=== PATIENT | female | born 1945 | race Caucasian/White ===

== ENCOUNTER 2018-07-30 20:14 | Emergency (ER) | payer OTHER ==
[~2018-07-30] VITALS: Ht 167.6 cm; Wt 108.9 kg
[~2018-07-30 20:14] MED LIST: ADULT ONE DAI200 MCG PO; ALBIPROI INH; AMIO200 PO; ASPI325 PO; ATOR20 PO; Amiodarone HCl200 MG PO; CETI10; CHOL10002; CHOL10002 PO; CIPR500 PO; CITA20 PO; COMBIVENT RESPIM4 GM INH; Calcitriol0.25 MCG PO; Coumadin1 MG PO; Coumadin2 MG PO; DIAZ5 PO; DOCU100 PO; ENOX120I SC; ESTR1; FIBER SELECT G1 EACH PO; FLUSAL2505 IH; FLUSAL2505 INH; FURO20; FURO20 PO; HYDR25SUP PR; IRON150C PO; Jantoven2 MG; Kristalose20 GM PO; LEVSOD100 PO; LEVSOD88 PO; Levaquin750 MG PO; METO100ER PO; METO50ER PO; MULTI-VITAMIN1 EAC1 PO; Motion Sickness25 M4 PO; NAPR500 PO; Norco 5-325 Ta1 EACH PO; OMEP20ER PO; OXYACE5T PO; POTCHL10ER; POTCHL10ER PO; Prednisone20 MG PO; Prilosec Otc20 MG PO; SOTO80; Synthroid88 MCG PO; TRAM50 PO; TRAZ100 PO; TRAZ50 PO; TYLENOL ARTHRITIS PO; WARF1 PO; WARF2; WARF2.5; WARF2.5 PO
[2018-07-30 21:18] LABS: BASOPHILS ABSOLUTE AUTO 0.03 K/mm3 (0.00-0.23); BASOPHILS PERCENT AUTO 0 % (0-2); EOSINOPHILS ABSOLUTE AUTO 0.08 K/mm3 (0.00-0.68); EOSINOPHILS PERCENT AUTO 1 % (0-6); Hematocrit 38.4 % (33.0-51.0); Hemoglobin 12.4 g/dL (11.5-16.0); IMMATURE GRAN ABSOLUTE AUTO 0.02 K/mm3 (0.00-0.10); IMMATURE GRAN PERCENT AUTO 0 % (0-1); LYMPHOCYTES ABSOLUTE AUTO 0.97 K/mm3 (0.84-5.20); LYMPHOCYTES PERCENT AUTO 12 % (21-46); MONOCYTES ABSOLUTE AUTO 0.67 K/mm3 (0.16-1.47); MONOCYTES PERCENT AUTO 8 % (4-13); Mean Corpuscular HGB Conc 32.3 g/dL (31.5-36.5); Mean Corpuscular Volume 93 fL (80-100); Mean Platelet Volume 11.3 fL (9.1-12.4); NEUTROPHILS ABSOLUTE AUTO 6.35 K/mm3 (1.96-9.15); NEUTROPHILS PERCENT AUTO 78 % (41-73); Platelet Count 220 K/mm3 (150-400); RDW Coefficient Variation 14.2 % (11.7-14.2); RDW Standard Deviation 47.9 fL (35.1-46.3); Red Blood Cell Count 4.13 M/mm3 (3.80-5.20); White Blood Cell Count 8.12 K/mm3 (4.00-11.30)
[2018-07-30 21:30] LABS: International Normalized Ratio 1.43; Prothrombin Time Results 14.4 Sec (9.7-11.5)
[2018-07-30 21:36] LABS: Albumin, Blood 2.8 g/dL (3.4-5.0); Albumin/Globulin Ratio 0.7 (0.8-1.8); Bilirubin, Total 0.3 mg/dL (0.1-1.0); Bun/Creatinine Ratio 13.5 (12.0-20.0); Calcium, Blood 8.4 mg/dL (8.5-10.1); Creatinine, Blood 1.56 mg/dL (0.40-1.00); Globulin, Blood 3.9 g/dL (2.2-4.0); Potassium, Blood 4.2 mmol/L (3.5-5.5); Total Protein, Blood 6.7 g/dL (6.4-8.2)
[2018-07-30 23:00] LABS: Influenza A Negative (NEGATIVE); Influenza B Negative (NEGATIVE)
[2018-07-30 23:15] LABS: Source, Urine Clean Catch
[2018-07-30 23:20] LABS: Appearance, Urine Clear (Clear); Bilirubin, Urine 1+ (Neg); Blood, Urine Neg (Neg); Color, Urine Yellow (P-Yellow); Glucose Qualitative, Urine Neg (Neg); Ketones, Urine Neg (Neg); Leukocyte Esterase, Urine 1+ (Neg); Nitrite, Urine Neg (Neg); Protein, Urine 1+ (Neg); Specific Gravity, Urine 1.015 (1.003-1.022); Urobilinogen, Urine 1+ (Normal)
[2018-07-30 23:29] LABS: Bacteria Few /hpf; Red Blood Cells, Urine Not Seen /hpf (0-2); Squamous Epithelial Cells Mod /hpf (Few); White Blood Cells, Urine 0-2 /hpf (0-5)
== END 2018-07-30 23:53 | disposition home or self-care (01) ==
LOC: ER 20:14
PROVIDERS: Emergency Medicine
DX: B34.9 Viral infection, unspecified (principal); J45.909 Unspecified asthma, uncomplicated; G47.30 Sleep apnea, unspecified; I48.91 Unspecified atrial fibrillation; Z88.5 Allergy status to narcotic agent; Z88.0 Allergy status to penicillin; Z79.01 Long term (current) use of anticoagulants; Z79.899 Other long term (current) drug therapy
CPT/HCPCS: 36415; 80053; 81001; 84484; 85025; 85610; 87086; 87804; 96360; 99283-25; J7030

== ENCOUNTER → 2018-08-01 | Outpatient (CLI) | payer OTHER ==
[2018-08-04 10:40] LABS: Adenovirus F 40/41 Not Detected (NOT DETECT); Astrovirus Not Detected (NOT DETECT); Campylobacter Sp Not Detected (NOT DETECT); Cryptosporidium Not Detected (NOT DETECT); Cyclospora Cayetanensis Not Detected (NOT DETECT); E. Coli O157 Not Detected (NOT DETECT); Entamoeba Histolytica Not Detected (NOT DETECT); Enteroaggregative E. coli-EAEC Not Detected (NOT DETECT); Enteropathogenic E. coli-EPEC Not Detected (NOT DETECT); Enterotoxigenic E. coli-ETEC Not Detected (NOT DETECT); Giardia Lamblia Not Detected (NOT DETECT); Norovirus GI/GII Not Detected (NOT DETECT); Plesiomonas Shigelloides Not Detected (NOT DETECT); Rotavirus A Not Detected (NOT DETECT); Salmonella Sp Not Detected (NOT DETECT); Sapovirus Not Detected (NOT DETECT); Shiga Toxin-prod E. coli-STEC Not Detected (NOT DETECT); Shigella/Enteroin E. coli-EIEC Not Detected (NOT DETECT); Vibrio Cholerae Not Detected (NOT DETECT); Vibrio Sp Not Detected (NOT DETECT); Yersinia Enterocolitica Not Detected (NOT DETECT)
== END ==
LOC: LAB EV 08:57
PROVIDERS: Family Medicine
DX: R19.7 Diarrhea, unspecified (principal)
CPT/HCPCS: 87507

== ENCOUNTER 2019-03-26 10:42 | Emergency (ER) | payer OTHER ==
[~2019-03-26] VITALS: Ht 167.6 cm; Wt 106.6 kg
[2019-03-26 11:08] LABS: BASOPHILS ABSOLUTE AUTO 0.06 K/mm3 (0.00-0.23); BASOPHILS PERCENT AUTO 1 % (0-2); EOSINOPHILS ABSOLUTE AUTO 0.16 K/mm3 (0.00-0.68); EOSINOPHILS PERCENT AUTO 2 % (0-6); Hematocrit 37.4 % (33.0-51.0); IMMATURE GRAN ABSOLUTE AUTO 0.02 K/mm3 (0.00-0.10); IMMATURE GRAN PERCENT AUTO 0 % (0-1); LYMPHOCYTES ABSOLUTE AUTO 2.68 K/mm3 (0.84-5.20); LYMPHOCYTES PERCENT AUTO 33 % (21-46); MONOCYTES ABSOLUTE AUTO 0.92 K/mm3 (0.16-1.47); MONOCYTES PERCENT AUTO 11 % (4-13); Mean Corpuscular HGB 29.9 pg (26.0-34.0); Mean Corpuscular HGB Conc 32.1 g/dL (31.5-36.5); Mean Corpuscular Volume 93 fL (80-100); Mean Platelet Volume 11.4 fL (9.1-12.4); NEUTROPHILS PERCENT AUTO 52 % (41-73); Platelet Count 243 K/mm3 (150-400); RDW Coefficient Variation 13.2 % (11.7-14.2); RDW Standard Deviation 45.2 fL (35.1-46.3); Red Blood Cell Count 4.02 M/mm3 (3.80-5.20); White Blood Cell Count 8.04 K/mm3 (4.00-11.30)
[2019-03-26] MEDS ORDERED: ELIQUIS2.5 MG PO (11:27)
[2019-03-26 11:33] LABS: Alanine Aminotransfer (ALT/SGP 16 U/L (12-78); Albumin, Blood 2.9 g/dL (3.4-5.0); Albumin/Globulin Ratio 0.8 (0.8-1.8); Alk Phos 92 U/L (50-136); Anion Gap 8 mmol/L (6-16); Aspartate Aminotrans (AST/SGOT 13 U/L (12-37); Bilirubin, Total 0.5 mg/dL (0.1-1.0); Blood Urea Nitrogen 18 mg/dL (8-24); Bun/Creatinine Ratio 12.6 (12.0-20.0); CO2, Blood 26 mmol/L (21-32); Calcium, Blood 8.8 mg/dL (8.5-10.1); Chloride, Blood 110 mmol/L (98-108); Creatinine, Blood 1.43 mg/dL (0.40-1.00); Globulin, Blood 3.7 g/dL (2.2-4.0); Glomerular Filtration Rate 38 (60-); Glucose, Blood 86 mg/dL (70-99); Potassium, Blood 3.4 mmol/L (3.5-5.5); Sodium, Blood 144 mmol/L (136-145); Total Protein, Blood 6.6 g/dL (6.4-8.2); Troponin I <0.015 ng/mL (0.000-0.040)
[2019-03-26] MEDS ORDERED: Prednisone20 MG PO (11:51)
== END 2019-03-26 12:05 | disposition home or self-care (01) ==
LOC: ER 10:42
PROVIDERS: Emergency Medicine
DX: J44.1 Chronic obstructive pulmonary disease with (acute) exacerbation (principal); I48.91 Unspecified atrial fibrillation; Z88.1 Allergy status to other antibiotic agents; Z88.5 Allergy status to narcotic agent; Z79.899 Other long term (current) drug therapy; Z79.01 Long term (current) use of anticoagulants
CPT/HCPCS: 36415; 71046; 80053; 84484; 85025; 93005; 93010; 99285-25; J7512

== ENCOUNTER 2019-12-09 23:15 | Emergency (ER) | payer OTHER ==
[~2019-12-09] VITALS: Ht 167.6 cm; Wt 102.1 kg
[~2019-12-09 23:15] MED LIST changes: +ELIQUIS2.5 MG PO; +EUTHYROX50 MCG PO; -LEVSOD100 PO
[2019-12-09] MEDS ORDERED: FLUT1DIS5 (23:35)
[2019-12-09] MEDS ORDERED: TRAZ50 (23:35)
[2019-12-09 23:38] LABS: BASOPHILS ABSOLUTE AUTO 0.06 K/mm3 (0.00-0.23); BASOPHILS PERCENT AUTO 1 % (0-2); EOSINOPHILS ABSOLUTE AUTO 0.12 K/mm3 (0.00-0.68); EOSINOPHILS PERCENT AUTO 1 % (0-6); Hemoglobin 11.3 g/dL (11.5-16.0); IMMATURE GRAN ABSOLUTE AUTO 0.03 K/mm3 (0.00-0.10); IMMATURE GRAN PERCENT AUTO 0 % (0-1); LYMPHOCYTES ABSOLUTE AUTO 2.66 K/mm3 (0.84-5.20); LYMPHOCYTES PERCENT AUTO 22 % (21-46); MONOCYTES PERCENT AUTO 10 % (4-13); Mean Corpuscular HGB 29.1 pg (26.0-34.0); Mean Corpuscular HGB Conc 31.4 g/dL (31.5-36.5); Mean Corpuscular Volume 93 fL (80-100); Mean Platelet Volume 11.8 fL (9.1-12.4); NEUTROPHILS ABSOLUTE AUTO 7.79 K/mm3 (1.96-9.15); NEUTROPHILS PERCENT AUTO 66 % (41-73); Platelet Count 250 K/mm3 (150-400); RDW Coefficient Variation 13.1 % (11.7-14.2); RDW Standard Deviation 44.6 fL (35.1-46.3); Red Blood Cell Count 3.88 M/mm3 (3.80-5.20); White Blood Cell Count 11.86 K/mm3 (4.00-11.30)
[2019-12-09 23:50] LABS: Albumin, Blood 2.8 g/dL (3.4-5.0); Albumin/Globulin Ratio 0.7 (0.8-1.8); Bilirubin, Total 0.4 mg/dL (0.1-1.0); Bun/Creatinine Ratio 16.7 (12.0-20.0); Calcium, Blood 8.5 mg/dL (8.5-10.1); Creatinine, Blood 1.32 mg/dL (0.40-1.00); Potassium, Blood 3.6 mmol/L (3.5-5.5); Total Protein, Blood 6.8 g/dL (6.4-8.2)
[2019-12-09 23:58] LABS: Source, Urine Clean Catch
[2019-12-10 00:06] LABS: Appearance, Urine Clear (Clear); Bilirubin, Urine Neg (Neg); Blood, Urine Neg (Neg); Color, Urine Yellow (P-Yellow); Glucose Qualitative, Urine Neg (Neg); Ketones, Urine Neg (Neg); Leukocyte Esterase, Urine 3+ (Neg); Nitrite, Urine Neg (Neg); Protein, Urine Neg (Neg); Specific Gravity, Urine 1.015 (1.003-1.022); Urobilinogen, Urine 1+ (Normal)
[2019-12-10 00:09] LABS: Bacteria Many /hpf; Mucus Light (0-Heavy); Squamous Epithelial Cells Few /hpf (Few)
[2019-12-10] MEDS ORDERED: CEFP200 PO (00:41)
== END 2019-12-10 00:54 | disposition home or self-care (01) ==
LOC: ER 23:15
PROVIDERS: Emergency Medicine
DX: N39.0 Urinary tract infection, site not specified (principal); I48.91 Unspecified atrial fibrillation; J45.909 Unspecified asthma, uncomplicated; G47.30 Sleep apnea, unspecified; Z88.1 Allergy status to other antibiotic agents; Z88.5 Allergy status to narcotic agent; Z79.899 Other long term (current) drug therapy; Z79.01 Long term (current) use of anticoagulants; Z99.89 Dependence on other enabling machines and devices
CPT/HCPCS: 80053; 81001; 85025; 87086; 93005; 93010; 96365; 99284-25; J0696

== ENCOUNTER → 2020-04-15 | Outpatient (CLI) | payer OTHER ==
[~2020-04-15] MED LIST changes: +CEFP200 PO; +FLUT1DIS5; +TRAZ50
== END ==
LOC: LAB SHORT 12:33 → LAB EV 12:33
DX: J44.1 Chronic obstructive pulmonary disease with (acute) exacerbation (principal); Z20.828 Contact with and (suspected) exposure to other viral communicable diseases
CPT/HCPCS: U0003

== ENCOUNTER → 2020-05-04 | Outpatient (CLI) | payer OTHER | END | disposition home or self-care (01) | LOC: LAB EV 14:30 → LAB SHORT 14:30 | DX: J44.9 Chronic obstructive pulmonary disease, unspecified (principal) | CPT/HCPCS: 87070; 87205 ==

== ENCOUNTER → 2021-05-24 | Outpatient (CLI) | payer OTHER ==
[~2021-05-24] MED LIST changes: +ALBU90OI INH; +BENADRYL25 MG PO; +CALC.25; +Pepcid20 MG PO
[2021-05-24 17:55] LABS: BASOPHILS ABSOLUTE AUTO 0.07 K/mm3 (0.00-0.23); BASOPHILS PERCENT AUTO 1 % (0-2); EOSINOPHILS PERCENT AUTO 2 % (0-6); Hematocrit 36.1 % (33.0-51.0); Hemoglobin 11.7 g/dL (11.5-16.0); IMMATURE GRAN ABSOLUTE AUTO 0.03 K/mm3 (0.00-0.10); IMMATURE GRAN PERCENT AUTO 0 % (0-1); LYMPHOCYTES PERCENT AUTO 28 % (21-46); MONOCYTES ABSOLUTE AUTO 0.78 K/mm3 (0.16-1.47); MONOCYTES PERCENT AUTO 10 % (4-13); Mean Corpuscular HGB 29.7 pg (26.0-34.0); Mean Corpuscular HGB Conc 32.4 g/dL (31.5-36.5); Mean Corpuscular Volume 92 fL (80-100); Mean Platelet Volume 11.2 fL (9.1-12.4); NEUTROPHILS ABSOLUTE AUTO 4.86 K/mm3 (1.96-9.15); NEUTROPHILS PERCENT AUTO 59 % (41-73); Platelet Count 311 K/mm3 (150-400); RDW Coefficient Variation 13.5 % (11.7-14.2); RDW Standard Deviation 45.6 fL (35.1-46.3); Red Blood Cell Count 3.94 M/mm3 (3.80-5.20); White Blood Cell Count 8.24 K/mm3 (4.00-11.30)
[2021-05-24 17:59] LABS: Bun/Creatinine Ratio 13.1 (12.0-20.0); Calcium, Blood 8.8 mg/dL (8.5-10.1); Creatinine, Blood 1.6 mg/dL (0.40-1.00); Potassium, Blood 3.9 mmol/L (3.5-5.5)
[2021-05-24 18:14] LABS: Thyroid Stimulating Hormone 2.371 uIU/mL (0.360-4.800)
[2021-05-24 18:15] LABS: Troponin I <0.017 ng/mL (0.000-0.040)
[2021-05-24 19:04] LABS: International Normalized Ratio 1.67
== END ==
LOC: LAB 17:45 → LAB SHORT 17:45
PROVIDERS: Physician Assistant Surgical
DX: R06.00 Dyspnea, unspecified (principal); R53.83 Other fatigue; Z79.01 Long term (current) use of anticoagulants
CPT/HCPCS: 80048; 84443; 84484; 85025; 85379; 85610; 85730

== ENCOUNTER 2021-05-30 18:49 | Emergency (ER) | payer OTHER ==
[~2021-05-30] VITALS: Ht 167.6 cm; Wt 104.3 kg
[~2021-05-30 18:49] MED LIST changes: -ALBU90OI INH; -CALC.25
[2021-05-30] MEDS ORDERED: ALBU90OI INH (19:17)
[2021-05-30] MEDS ORDERED: WARF1 PO (19:18)
[2021-05-30] MEDS ORDERED: CALC.25 (19:20)
[2021-05-30 21:07] LABS: BASOPHILS ABSOLUTE AUTO 0.06 K/mm3 (0.00-0.23); BASOPHILS PERCENT AUTO 1 % (0-2); EOSINOPHILS ABSOLUTE AUTO 0.15 K/mm3 (0.00-0.68); EOSINOPHILS PERCENT AUTO 2 % (0-6); Hematocrit 36.7 % (33.0-51.0); Hemoglobin 11.7 g/dL (11.5-16.0); IMMATURE GRAN ABSOLUTE AUTO 0.01 K/mm3 (0.00-0.10); IMMATURE GRAN PERCENT AUTO 0 % (0-1); LYMPHOCYTES ABSOLUTE AUTO 2.62 K/mm3 (0.84-5.20); LYMPHOCYTES PERCENT AUTO 31 % (21-46); MONOCYTES PERCENT AUTO 8 % (4-13); Mean Corpuscular HGB 29.6 pg (26.0-34.0); Mean Corpuscular HGB Conc 31.9 g/dL (31.5-36.5); Mean Corpuscular Volume 93 fL (80-100); Mean Platelet Volume 12.3 fL (9.1-12.4); NEUTROPHILS ABSOLUTE AUTO 4.87 K/mm3 (1.96-9.15); NEUTROPHILS PERCENT AUTO 58 % (41-73); Platelet Count 291 K/mm3 (150-400); RDW Standard Deviation 47.6 fL (35.1-46.3); Red Blood Cell Count 3.95 M/mm3 (3.80-5.20); White Blood Cell Count 8.41 K/mm3 (4.00-11.30)
[2021-05-30 21:26] LABS: Alanine Aminotransfer (ALT/SGP 15 U/L (12-78); Albumin, Blood 2.5 g/dL (3.4-5.0); Albumin/Globulin Ratio 0.6 (0.8-1.8); Alk Phos 76 U/L (50-136); Anion Gap 5 mmol/L (6-16); Aspartate Aminotrans (AST/SGOT 16 U/L (12-37); Bilirubin, Total 0.4 mg/dL (0.1-1.0); Blood Urea Nitrogen 24 mg/dL (8-24); Bun/Creatinine Ratio 16.2 (12.0-20.0); CO2, Blood 24 mmol/L (21-32); Calcium, Blood 8.9 mg/dL (8.5-10.1); Chloride, Blood 112 mmol/L (98-108); Creatinine, Blood 1.48 mg/dL (0.40-1.00); Globulin, Blood 4.3 g/dL (2.2-4.0); Glomerular Filtration Rate 34 (60-); Glucose, Blood 82 mg/dL (70-99); Sodium, Blood 141 mmol/L (136-145); Total Protein, Blood 6.8 g/dL (6.4-8.2); Troponin I <0.015 ng/mL (0.000-0.040)
[2021-05-30 21:59] LABS: International Normalized Ratio 2.09; Prothrombin Time Results 20.9 Sec (9.7-11.5)
[2021-05-30 22:23] LABS: SARS-Cov-2 (COVID-19) PCR, MMC NEGATIVE (NEGATIVE)
== END 2021-05-30 23:35 | disposition home or self-care (01) ==
LOC: ER 18:49
PROVIDERS: Emergency Medicine
DX: J06.9 Acute upper respiratory infection, unspecified (principal); I48.0 Paroxysmal atrial fibrillation; I50.9 Heart failure, unspecified; J44.9 Chronic obstructive pulmonary disease, unspecified; Z20.822 Contact with and (suspected) exposure to COVID-19
CPT/HCPCS: 71045; 80053; 83880; 84484; 85025; 85610; 92960; 93005; 93010; 99152; 99285-25; J1940; J2704; J7030; U0004

== ENCOUNTER → 2021-08-24 | Outpatient (CLI) | payer OTHER ==
[~2021-08-24] MED LIST changes: +ALBU90OI INH; +CALC.25
[2021-08-24 13:37] LABS: BASOPHILS ABSOLUTE AUTO 0.03 K/mm3 (0.00-0.23); BASOPHILS PERCENT AUTO 0 % (0-2); EOSINOPHILS PERCENT AUTO 0 % (0-6); Hematocrit 36.7 % (33.0-51.0); Hemoglobin 11.8 g/dL (11.5-16.0); IMMATURE GRAN ABSOLUTE AUTO 0.04 K/mm3 (0.00-0.10); IMMATURE GRAN PERCENT AUTO 0 % (0-1); LYMPHOCYTES ABSOLUTE AUTO 0.71 K/mm3 (0.84-5.20); LYMPHOCYTES PERCENT AUTO 7 % (21-46); MONOCYTES ABSOLUTE AUTO 0.17 K/mm3 (0.16-1.47); MONOCYTES PERCENT AUTO 2 % (4-13); Mean Corpuscular HGB 29.6 pg (26.0-34.0); Mean Corpuscular HGB Conc 32.2 g/dL (31.5-36.5); Mean Corpuscular Volume 92 fL (80-100); Mean Platelet Volume 11.8 fL (9.1-12.4); NEUTROPHILS ABSOLUTE AUTO 8.79 K/mm3 (1.96-9.15); NEUTROPHILS PERCENT AUTO 90 % (41-73); Platelet Count 251 K/mm3 (150-400); RDW Coefficient Variation 14.6 % (11.7-14.2); RDW Standard Deviation 49.1 fL (35.1-46.3); Red Blood Cell Count 3.99 M/mm3 (3.80-5.20); White Blood Cell Count 9.74 K/mm3 (4.00-11.30)
[2021-08-24 14:04] LABS: Albumin, Blood 3.2 g/dL (3.4-5.0); Albumin/Globulin Ratio 0.8 (0.8-1.8); Bilirubin, Total 0.3 mg/dL (0.1-1.0); Bun/Creatinine Ratio 15.6 (12.0-20.0); Creatinine, Blood 1.6 mg/dL (0.40-1.00); Globulin, Blood 3.8 g/dL (2.2-4.0); International Normalized Ratio 3.05; Potassium, Blood 4.7 mmol/L (3.5-5.5); Prothrombin Time Results 29.8 Sec (9.7-11.5)
== END | disposition home or self-care (01) ==
LOC: LAB SHORT 13:29
PROVIDERS: Chiropractor
DX: R07.9 Chest pain, unspecified (principal)
CPT/HCPCS: 80053; 83880; 84484; 85025; 85379; 85610

== ENCOUNTER → 2021-09-06 | Outpatient (CLI) | payer OTHER | END | disposition home or self-care (01) | LOC: LAB 15:31 → LAB SHORT 15:31 | DX: J44.9 Chronic obstructive pulmonary disease, unspecified (principal) | CPT/HCPCS: 87070; 87205 ==

== ENCOUNTER 2022-08-20 20:10 | Emergency (ER) | payer OTHER ==
[~2022-08-20] VITALS: Ht 167.6 cm; Wt 111.1 kg
[2022-08-20 21:02] LABS: BASOPHILS ABSOLUTE AUTO 0.02 K/mm3 (0.00-0.23); BASOPHILS PERCENT AUTO 0 % (0-2); EOSINOPHILS ABSOLUTE AUTO 0.01 K/mm3 (0.00-0.68); EOSINOPHILS PERCENT AUTO 0 % (0-6); Hematocrit 37.4 % (33.0-51.0); Hemoglobin 12.3 g/dL (11.5-16.0); IMMATURE GRAN ABSOLUTE AUTO 0.07 K/mm3 (0.00-0.10); IMMATURE GRAN PERCENT AUTO 1 % (0-1); LYMPHOCYTES ABSOLUTE AUTO 1.08 K/mm3 (0.84-5.20); LYMPHOCYTES PERCENT AUTO 9 % (21-46); MONOCYTES ABSOLUTE AUTO 0.38 K/mm3 (0.16-1.47); MONOCYTES PERCENT AUTO 3 % (4-13); Mean Corpuscular HGB 29.9 pg (26.0-34.0); Mean Corpuscular HGB Conc 32.9 g/dL (31.5-36.5); Mean Corpuscular Volume 91 fL (80-100); Mean Platelet Volume 11.7 fL (9.1-12.4); NEUTROPHILS ABSOLUTE AUTO 9.89 K/mm3 (1.96-9.15); NEUTROPHILS PERCENT AUTO 86 % (41-73); Platelet Count 307 K/mm3 (150-400); RDW Coefficient Variation 13.5 % (11.7-14.2); RDW Standard Deviation 45.2 fL (35.1-46.3); Red Blood Cell Count 4.11 M/mm3 (3.80-5.20); White Blood Cell Count 11.45 K/mm3 (4.00-11.30)
[2022-08-20 21:23] LABS: Albumin, Blood 2.8 g/dL (3.4-5.0); Albumin/Globulin Ratio 0.6 (0.8-1.8); Bilirubin, Total 0.3 mg/dL (0.1-1.0); Bun/Creatinine Ratio 17.1 (12.0-20.0); Calcium, Blood 9.1 mg/dL (8.5-10.1); Creatinine, Blood 1.52 mg/dL (0.40-1.00); Potassium, Blood 4.4 mmol/L (3.5-5.5); Total Protein, Blood 7.8 g/dL (6.4-8.2)
== END 2022-08-21 01:34 | disposition home or self-care (01) ==
LOC: ER 20:10
PROVIDERS: Emergency Medicine
DX: R07.89 Other chest pain (principal); R05.9 Cough, unspecified; J44.9 Chronic obstructive pulmonary disease, unspecified; Z88.1 Allergy status to other antibiotic agents; Z88.5 Allergy status to narcotic agent; Z79.890 Hormone replacement therapy; Z79.899 Other long term (current) drug therapy; Z79.01 Long term (current) use of anticoagulants
CPT/HCPCS: 36415; 71045; 80053; 84484; 85025; 93005; 93010; 99285-25

== ENCOUNTER 2022-10-28 16:24 | Emergency (ER) | payer OTHER ==
[~2022-10-28] VITALS: Ht 170.2 cm; Wt 110.7 kg
[2022-10-28] MEDS ORDERED: AMOCLA875 PO (18:46)
== END 2022-10-28 18:57 | disposition home or self-care (01) ==
LOC: ER 16:24
DX: S61.432A Puncture wound without foreign body of left hand, initial encounter (principal); W18.30XA Fall on same level, unspecified, initial encounter; I48.91 Unspecified atrial fibrillation; J44.9 Chronic obstructive pulmonary disease, unspecified; Z23 Encounter for immunization; Z88.1 Allergy status to other antibiotic agents; Z88.5 Allergy status to narcotic agent; Z79.899 Other long term (current) drug therapy; Z79.01 Long term (current) use of anticoagulants
CPT/HCPCS: 73130; 90714; A9270

== ENCOUNTER 2023-02-15 07:14 | Day surgery (SDC) | payer OTHER ==
[~2023-02-15 07:14] MED LIST changes: +AMOCLA875 PO; +Prednisone50 MG PO
== END 2023-02-15 22:45 | disposition home or self-care (01) ==
LOC: CT 07:14
DX: I25.119 Atherosclerotic heart disease of native coronary artery with unspecified angina pectoris (principal); I25.84 Coronary atherosclerosis due to calcified coronary lesion
CPT/HCPCS: 75571

== ENCOUNTER → 2024-01-02 | Outpatient (CLI) | payer OTHER | END | disposition home or self-care (01) | LOC: LAB SHORT 09:00 → LAB 09:00 | DX: J18.9 Pneumonia, unspecified organism (principal) | CPT/HCPCS: 87070; 87205 ==

== ENCOUNTER 2024-05-19 12:23 | Day surgery (SDC) | payer OTHER ==
[~2024-05-19] VITALS: Ht 167.6 cm; Wt 95.4 kg
[~2024-05-19 12:23] MED LIST changes: +ALMACONE SUSPE355 ML PO; +ARNUITY ELLIPT50 MCG; +COMBIVENT RESPIM4 G1 INH; +Diflucan100 MG PO; +FORMOTEROL20 MCG/2 M INH; +GLYCOPYRROL1 MG/5 M7 INH; +Glycopyrrolate 0.2 MG/ML 1MLVIAL ONE; +LATA.005SO BOTHEYES; +Lactated Ringer's 1,000 ML IV ONE; +Lidocaine 2% 5 ML SDV ONE; +Lidocaine HCl/Pf 1% 5 ML VIAL ONE; +MONT10T PO; +MOTION RELIEF25 MG PO; +Ondansetron HCl 2 MG / ML 2ML Vial ONE; +PANT40 PO; +PULMICORT0.5 MG/21 INH; -TRAZ50; +WARF2 PO; +ePHEDrine Sulfate 50 MG/ML 1ML Injection ONE
[2024-05-19] MEDS ORDERED: IRON GLYCINATE29 MG (13:16)
[2024-05-19] MEDS ORDERED: PANT40 (13:17)
[2024-05-19] MEDS ORDERED: COMBIVENT RESPIM4 G1 (13:17)
[2024-05-19] MEDS ORDERED: JANTOVEN2 MG (13:17)
[2024-05-19] MEDS ORDERED: Isosorbide Mono30 MG (13:18)
[2024-05-19] MEDS ORDERED: NITR.4SL (13:18)
[2024-05-19] MEDS ORDERED: IPRAT-ALBUT 0.5-3 ML (13:19)
[2024-05-19] MEDS ORDERED: Lactated Ringer's 1,000 ML IV ONE (13:46)
[2024-05-19] MEDS ORDERED: propofoL 50 ML IV ONE (14:19)
[2024-05-19] MEDS ORDERED: Midazolam HCL 1 MG/ML 5MLVIAL ONE (14:19)
[2024-05-19] MEDS ORDERED: FentaNYL Citrate 50 MCG/ML 2 ML Injection ONE (14:19)
[2024-05-19 15:11] VITALS: BP 142/83
== END 2024-05-19 15:17 | disposition home or self-care (01) ==
LOC: ORSCSDS 12:23
PROVIDERS: Specialist
PROC: 0D758ZZ Dilation of Esophagus, Via Natural or Artificial Opening Endoscopic (ICD-10-PCS; principal; 2024-05-19 14:15)
PROC: 0DB58ZX Excision of Esophagus, Via Natural or Artificial Opening Endoscopic, Diagnostic (ICD-10-PCS; principal; 2024-05-19 14:15)
PROC: 0DB78ZX Excision of Stomach, Pylorus, Via Natural or Artificial Opening Endoscopic, Diagnostic (ICD-10-PCS; principal; 2024-05-19 14:15)
DX: R13.10 Dysphagia, unspecified (principal); K21.9 Gastro-esophageal reflux disease without esophagitis; R07.89 Other chest pain; K29.70 Gastritis, unspecified, without bleeding; I12.9 Hypertensive chronic kidney disease with stage 1 through stage 4 chronic kidney disease, or unspecified chronic kidney disease; N18.9 Chronic kidney disease, unspecified; E03.9 Hypothyroidism, unspecified; J44.89 Other specified chronic obstructive pulmonary disease; G47.33 Obstructive sleep apnea (adult) (pediatric); Z79.899 Other long term (current) drug therapy; I48.91 Unspecified atrial fibrillation; Z79.01 Long term (current) use of anticoagulants; Z68.33 Body mass index [BMI] 33.0-33.9, adult
CPT/HCPCS: 88305; 88342; C1769; J2003; J2250; J2405; J2704; J3010; J7120

== ENCOUNTER 2024-09-06 06:16 | Emergency (ER) | payer OTHER ==
[~2024-09-06] VITALS: Ht 172.7 cm; Wt 91.6 kg
[~2024-09-06 06:16] MED LIST changes: +COMBIVENT RESPIM4 G1; -Glycopyrrolate 0.2 MG/ML 1MLVIAL ONE; +IPRAT-ALBUT 0.5-3 ML; +IRON GLYCINATE29 MG; +Isosorbide Mono30 MG; +JANTOVEN2 MG; -Lactated Ringer's 1,000 ML IV ONE; -Lidocaine 2% 5 ML SDV ONE; -Lidocaine HCl/Pf 1% 5 ML VIAL ONE; +NITR.4SL; -Ondansetron HCl 2 MG / ML 2ML Vial ONE; +PANT40; -ePHEDrine Sulfate 50 MG/ML 1ML Injection ONE
[2024-09-06] MEDS ORDERED: Atropine/Scopalam/Hyoscam/PB 5 ML UDC PO ONE (06:45)
[2024-09-06] MEDS ORDERED: Ondansetron HCl 2 MG / ML 2ML Vial IV ONE (06:45)
[2024-09-06] MEDS ORDERED: Mag Hydrox/AL Hydrox/Simeth 30 ML UDC PO ONE (06:45)
[2024-09-06 07:28] LABS: BASOPHILS ABSOLUTE AUTO 0.05 K/mm3 (0.00-0.23); BASOPHILS PERCENT AUTO 0 % (0-2); EOSINOPHILS ABSOLUTE AUTO 0.19 K/mm3 (0.00-0.68); EOSINOPHILS PERCENT AUTO 2 % (0-6); Hematocrit 41.1 % (33.0-51.0); Hemoglobin 13.7 g/dL (11.5-16.0); IMMATURE GRAN ABSOLUTE AUTO 0.03 K/mm3 (0.00-0.10); IMMATURE GRAN PERCENT AUTO 0 % (0-1); LYMPHOCYTES ABSOLUTE AUTO 1.36 K/mm3 (0.84-5.20); LYMPHOCYTES PERCENT AUTO 11 % (21-46); MONOCYTES ABSOLUTE AUTO 0.67 K/mm3 (0.16-1.47); MONOCYTES PERCENT AUTO 5 % (4-13); Mean Corpuscular HGB 33.3 pg (26.0-34.0); Mean Corpuscular HGB Conc 33.3 g/dL (31.5-36.5); Mean Corpuscular Volume 100 fL (80-100); Mean Platelet Volume 11.3 fL (9.1-12.4); NEUTROPHILS ABSOLUTE AUTO 10.47 K/mm3 (1.96-9.15); NEUTROPHILS PERCENT AUTO 82 % (41-73); Platelet Count 219 K/mm3 (150-400); RDW Coefficient Variation 14.6 % (11.7-14.2); RDW Standard Deviation 52.5 fL (35.1-46.3); Red Blood Cell Count 4.12 M/mm3 (3.80-5.20); White Blood Cell Count 12.77 K/mm3 (4.00-11.30)
[2024-09-06 07:34] VITALS: BP 149/63
[2024-09-06 07:59] LABS: Albumin/Globulin Ratio 0.7 (0.8-1.8); Bilirubin, Total 0.8 mg/dL (0.1-1.0); Bun/Creatinine Ratio 16.7 (12.0-20.0); Calcium, Blood 9.1 mg/dL (8.5-10.1); Creatinine, Blood 1.44 mg/dL (0.40-1.00); Globulin, Blood 4.4 g/dL (2.2-4.0); Potassium, Blood 3.9 mmol/L (3.5-5.5); Total Protein, Blood 7.4 g/dL (6.4-8.2)
== END 2024-09-06 08:46 | disposition home or self-care (01) ==
LOC: ER 06:16
PROVIDERS: Emergency Medicine
DX: R10.13 Epigastric pain (principal); K21.9 Gastro-esophageal reflux disease without esophagitis; J44.9 Chronic obstructive pulmonary disease, unspecified; I12.9 Hypertensive chronic kidney disease with stage 1 through stage 4 chronic kidney disease, or unspecified chronic kidney disease; N18.9 Chronic kidney disease, unspecified; E78.5 Hyperlipidemia, unspecified; Z88.2 Allergy status to sulfonamides; Z88.1 Allergy status to other antibiotic agents; Z88.5 Allergy status to narcotic agent; Z79.51 Long term (current) use of inhaled steroids; Z79.83 Long term (current) use of bisphosphonates; Z79.899 Other long term (current) drug therapy; Z79.02 Long term (current) use of antithrombotics/antiplatelets; Z79.890 Hormone replacement therapy; Z16.32 Resistance to antifungal drug(s); Z79.01 Long term (current) use of anticoagulants; Z79.1 Long term (current) use of non-steroidal anti-inflammatories (NSAID)
CPT/HCPCS: 80053; 84484; 85025; 93005; 93010; 99283-25; A9270; J2405

== ENCOUNTER 2024-10-09 00:47 | Inpatient (IN) | payer OTHER ==
[~2024-10-09] VITALS: Ht 167.6 cm; Wt 87.5 kg
[2024-10-09 01:08] LABS: BASOPHILS ABSOLUTE AUTO 0.06 K/mm3 (0.00-0.23); BASOPHILS PERCENT AUTO 1 % (0-2); EOSINOPHILS ABSOLUTE AUTO 0.22 K/mm3 (0.00-0.68); EOSINOPHILS PERCENT AUTO 3 % (0-6); Hematocrit 36.7 % (33.0-51.0); Hemoglobin 12.5 g/dL (11.5-16.0); IMMATURE GRAN ABSOLUTE AUTO 0.02 K/mm3 (0.00-0.10); IMMATURE GRAN PERCENT AUTO 0 % (0-1); LYMPHOCYTES ABSOLUTE AUTO 2.37 K/mm3 (0.84-5.20); LYMPHOCYTES PERCENT AUTO 28 % (21-46); MONOCYTES ABSOLUTE AUTO 0.98 K/mm3 (0.16-1.47); MONOCYTES PERCENT AUTO 12 % (4-13); Mean Corpuscular HGB 34.2 pg (26.0-34.0); Mean Corpuscular HGB Conc 34.1 g/dL (31.5-36.5); Mean Corpuscular Volume 101 fL (80-100); Mean Platelet Volume 11.7 fL (9.1-12.4); NEUTROPHILS ABSOLUTE AUTO 4.71 K/mm3 (1.96-9.15); NEUTROPHILS PERCENT AUTO 57 % (41-73); Platelet Count 218 K/mm3 (150-400); RDW Coefficient Variation 16.7 % (11.7-14.2); RDW Standard Deviation 61.5 fL (35.1-46.3); Red Blood Cell Count 3.65 M/mm3 (3.80-5.20); White Blood Cell Count 8.36 K/mm3 (4.00-11.30)
[2024-10-09] MEDS ORDERED: DORZOLAMIDE-TIM10 ML (01:49)
[2024-10-09] MEDS ORDERED: ENOX30I SC (01:50)
[2024-10-09] MEDS ORDERED: VALA500 PO (01:50)
[2024-10-09] MEDS ORDERED: PRED FORTE5 M1 (01:50)
[2024-10-09 01:55] LABS: Albumin, Blood 3.1 g/dL (3.4-5.0); Albumin/Globulin Ratio 0.8 (0.8-1.8); Bilirubin, Total 0.9 mg/dL (0.1-1.0); Bun/Creatinine Ratio 11.4 (12.0-20.0); Calcium, Blood 9.1 mg/dL (8.5-10.1); Creatinine, Blood 1.58 mg/dL (0.40-1.00); Globulin, Blood 3.7 g/dL (2.2-4.0); Potassium, Blood 3.8 mmol/L (3.5-5.5); Total Protein, Blood 6.8 g/dL (6.4-8.2)
[2024-10-09] MEDS ORDERED: Diphth,Pertuss(Acell),Tet Vac 0.5 ML VIAL IM ONE (02:20)
[2024-10-09] MEDS ORDERED: FentaNYL Citrate 50 MCG/ML 2 ML Injection IV PRN (02:20)
[2024-10-09] MEDS ORDERED: Ondansetron 4 MG TAB PO PRN (05:30)
[2024-10-09] MEDS ORDERED: FLU VACC TS2024-25(6MOS UP)/PF 45 MCG/0.5 ML SYRINGE IM ONE ×2 (05:30)
[2024-10-09] MEDS ORDERED: Meclizine HCl 25 MG Tab PO PRN (05:35)
[2024-10-09] MEDS ORDERED: Budesonide 0.5 MG/2 ML RESP INH SCH (05:35)
[2024-10-09] MEDS ORDERED: Nitroglycerin 0.4 MG SUBL SL PRN (05:40)
[2024-10-09] MEDS ORDERED: Dorzolamide/Timolol Opth Soln 10 ML BOTHEYES SCH (06:00)
[2024-10-09] MEDS ORDERED: NS 1,000 ML IV SCH (06:00)
[2024-10-09 06:39] LABS: C-REACTIVE PROTEIN, EXT RANGE 0.949 mg/dL (0.000-0.300)
[2024-10-09 06:48] LABS: Thyroid Stimulating Hormone 9.49 uIU/mL (0.360-4.800)
[2024-10-09] MEDS ORDERED: Albuterol HFA200 ACT/6.7 GM INH INH SCH (07:15)
[2024-10-09] MEDS ORDERED: Ipratropium/Albuterol SulF 2.5-0.5MG/3 ML Amp INH SCH (07:25)
--- NOTE | 2024-10-09 08:15 | NUR ---
PT ADMITTED TO ROOM 343.
[2024-10-09 08:26] VITALS: BP 173/97
[2024-10-09] MEDS ORDERED: Atorvastatin 10 MG Tab PO SCH (09:00)
[2024-10-09] MEDS ORDERED: Citalopram Hydrobromide 10 MG TAB PO SCH (09:00)
[2024-10-09] MEDS ORDERED: ValACYClovir HCL 500 MG Tab PO SCH (09:00)
[2024-10-09] MEDS ORDERED: Warfarin Sodium 2 MG Tab PO SCH (09:00)
[2024-10-09] MEDS ORDERED: Pantoprazole Sodium 20 MG Tab PO SCH (09:00)
[2024-10-09] MEDS ORDERED: Metoprolol Succinate 50 MG TABCR PO SCH (09:00)
[2024-10-09 10:21] LABS: International Normalized Ratio 1.01; Prothrombin Time Results 10.8 Sec (9.7-11.5)
[2024-10-09] MEDS ORDERED: Ciprofloxacin2.5 ML LEFTEYE (11:33)
[2024-10-09] MEDS ORDERED: PREDNISOLONE ACE5 ML LEFTEYE (11:34)
--- NOTE | 2024-10-09 11:50 | NUR ---
Pt. is awake and in good spirits when I visit. Pt. had other visitors present, so this cosmetologist agreed to return later. Will remain available to the Pt.
[2024-10-09 12:11] VITALS: BP 171/84
[2024-10-09 12:17] VITALS: BP 154/92
[2024-10-09] MEDS ORDERED: Albuterol HFA200 ACT/6.7 GM INH INH PRN (13:05)
[2024-10-09] MEDS ORDERED: Ipratropium/Albuterol SulF 2.5-0.5MG/3 ML Amp INH PRN (13:05)
[2024-10-09] MEDS ORDERED: Lactated Ringer's 500 ML IV SCH (13:30)
[2024-10-09] MEDS ORDERED: PrednisoLONE 1% Opth Susp 5 ML LEFTEYE SCH ×2 (13:35→21:00)
[2024-10-09] MEDS ORDERED: CIPROFLOXACIN 0.3% LEFTEYE SCH (13:35)
[2024-10-09] MEDS ORDERED: OPTH LEFTEYE SCH (13:35)
[2024-10-09 16:44] VITALS: BP 152/77
[2024-10-09] MEDS ORDERED: Albuterol 2.5 MG/3 ML VIAL INH SCH (16:45)
[2024-10-09] MEDS ORDERED: Warfarin Sodium 5 MG Tab PO SCH (18:00)
--- NOTE | 2024-10-09 18:08 | NUR ---
Pt. is awakw in bed and welcomes my visit. No vistors are present so I faciltated a life review and listened with empathy and interest. Considered matters of emilio and belief and also considered Pts. discharge expectations. Pt. verbalized that she has a good family support system that would help her at home, Attempted to normalize the Pt. experience. When Pts. son arrived, I prayed with Pt. Both Pt. and son verbalize gratitude for the spiritual care support.
--- NOTE | 2024-10-09 19:17 | NUR ---
SHIFT SUMMARY PT ADMITTED THIS MORNING AFTER EXPERIENCING A GLF AT HOME AND HITTING HER HEAD. PT REPORTS TO BE ON WARFARIN FOR AFIB. PT IS A/OX4. SBA D/T WEAKNESS. ORTHOSTATIC VITAL OBTAINED AND POSITIVE. PT IS ON RA, REPORTS CPAP USE AT NIGHT, THOUGH HAS NOT BEEN USING RECENTLY. ON TELE RUNNING NORMAL SINUS RYTHYM IN THE 60'S. REPORTS RECENT LEFT EYE SURGERY. HEMATOMA TO THE FOREHEAD AREA, SMALL SKIN TEAR TO THE LEFT KNEE, OPEN TO AIR, AND PAIN TO THE LEFT WRIST. SPLINT TO LEFT WRIST FOR COMFORT. MRI COMPLETED THIS AFTERNOON. CONTINUOUS NS RUNNING @ 100 ML/HR. PT CALLS APPROPRIATELY USING THE CALL LIGHT.
[2024-10-09] MEDS ORDERED: Acetaminophen 500 MG Tab PO PRN (19:30)
[2024-10-09 19:35] VITALS: BP 130/75
[2024-10-09 20:03] LABS: Source, Urine Clean Catch
[2024-10-09 20:08] LABS: Appearance, Urine Hazy (Clear); Bilirubin, Urine Neg (Neg); Blood, Urine Neg (Neg); Glucose Qualitative, Urine Neg (Neg); Ketones, Urine Neg (Neg); Leukocyte Esterase, Urine 1+ (Neg); Nitrite, Urine Neg (Neg); Protein, Urine Neg (Neg); Specific Gravity, Urine 1.015 (1.003-1.022); Urobilinogen, Urine NORM (Normal)
[2024-10-09 20:16] LABS: Color, Urine Pale Yellow (P-Yellow)
[2024-10-09 20:17] LABS: Bacteria Mod /hpf; Hyaline Casts 0-2 /lpf (0-2); Red Blood Cells, Urine Not Seen /hpf (0-2); Squamous Epithelial Cells Mod /hpf (Few)
[2024-10-09] MEDS ORDERED: Latanoprost 0.005% Opth Soln 2.5 ML BOTHEYES SCH (21:00)
[2024-10-09] MEDS ORDERED: TraZODone HCl 50 MG Tab PO SCH (21:00)
[2024-10-09] MEDS ORDERED: Dorzolamide/Timolol Opth Soln 10 ML LEFTEYE SCH (21:00)
[2024-10-09] MEDS ORDERED: Montelukast Sodium 10 MG Tab PO SCH (21:00)
[2024-10-09 23:09] VITALS: BP 112/92
--- NOTE | 2024-10-10 00:16 | NUR ---
HOSPITALIST CALLED AT BEGINNING OF SHIFT FOR SOME PAIN RELEIF IN PT'S WRISTS. PT HAD FENTANYL ORDERED BUT DID NOT WANT TO TAKE IT. PT REQUESTED TYLENOL. HOSPITALIST ORDERED 500 MG TYLENOL PRN Q4.
[2024-10-10 03:06] VITALS: BP 149/78
--- NOTE | 2024-10-10 04:22 | NUR ---
SHIFT SUMM: PT IS A 78 YO FULL CODE WHO WAS ADMITTED FOR A FALL AT HOME. PT HAS HAD SOME COMPLAINTS OF SORE WRISTS AND WAS MEDICATED PER THE EMAR. PT IS ON TELE AND NSR IN THE 60'S. PT IS ON CONTINUOUS FLUIDS OF NS AT 100ML/HR. PT CALLS AND IS A ONE PERSON ASSIST TO THE BATHROOM. URINE SAMPLE WAS SENT THIS SHIFT AND STILL WAITING TO COLLECT STOOL SAMPLE. PT HAS TROUBLE SEEING OUT OF LEFT EYE DUE TO HER EYE SURGERY. ORTHOSTATIC VITALS HAVE BEEN COMPLETED WITH PATIENT. PT MAKES NEEDS KNOWN AND HAS BEEN RESTING/SLEEPING MOST OF THE SHIFT.
[2024-10-10 05:29] LABS: BASOPHILS ABSOLUTE AUTO 0.06 K/mm3 (0.00-0.23); BASOPHILS PERCENT AUTO 1 % (0-2); EOSINOPHILS ABSOLUTE AUTO 0.15 K/mm3 (0.00-0.68); EOSINOPHILS PERCENT AUTO 2 % (0-6); Hematocrit 32.7 % (33.0-51.0); Hemoglobin 11.2 g/dL (11.5-16.0); IMMATURE GRAN ABSOLUTE AUTO 0.02 K/mm3 (0.00-0.10); IMMATURE GRAN PERCENT AUTO 0 % (0-1); LYMPHOCYTES ABSOLUTE AUTO 1.71 K/mm3 (0.84-5.20); LYMPHOCYTES PERCENT AUTO 23 % (21-46); MONOCYTES ABSOLUTE AUTO 0.94 K/mm3 (0.16-1.47); MONOCYTES PERCENT AUTO 13 % (4-13); Mean Corpuscular HGB 34.7 pg (26.0-34.0); Mean Corpuscular HGB Conc 34.3 g/dL (31.5-36.5); Mean Corpuscular Volume 101 fL (80-100); Mean Platelet Volume 12.3 fL (9.1-12.4); NEUTROPHILS ABSOLUTE AUTO 4.59 K/mm3 (1.96-9.15); NEUTROPHILS PERCENT AUTO 61 % (41-73); Platelet Count 191 K/mm3 (150-400); RDW Coefficient Variation 16.9 % (11.7-14.2); RDW Standard Deviation 62.3 fL (35.1-46.3); Red Blood Cell Count 3.23 M/mm3 (3.80-5.20); White Blood Cell Count 7.47 K/mm3 (4.00-11.30)
[2024-10-10 05:44] LABS: International Normalized Ratio 1.03
[2024-10-10 05:57] LABS: Albumin, Blood 2.8 g/dL (3.4-5.0); Albumin/Globulin Ratio 0.8 (0.8-1.8); Bilirubin, Total 0.7 mg/dL (0.1-1.0); Bun/Creatinine Ratio 11.3 (12.0-20.0); Calcium, Blood 8.2 mg/dL (8.5-10.1); Creatinine, Blood 1.24 mg/dL (0.40-1.00); Globulin, Blood 3.3 g/dL (2.2-4.0); Potassium, Blood 3.7 mmol/L (3.5-5.5); Total Protein, Blood 6.1 g/dL (6.4-8.2)
[2024-10-10 07:39] VITALS: BP 140/70
[2024-10-10 10:12] LABS: C DIFFICILE DNA NEGATIVE (Negative)
[2024-10-10 15:52] VITALS: BP 101/63
[2024-10-10] MEDS ORDERED: Warfarin Sodium 5 MG Tab PO SCH (18:00)
--- NOTE | 2024-10-10 18:23 | NUR ---
SUMMARY- PT A/O X4, USES CALL LIGHT TO MAKE NEEDS KNOWN. STEADY ON FEET, SBA TO BATHROOM. TOLERATING FOOD AND FLFUIDS. BRUISES AND ABRASION TO R FACIAL AND R ARM. C/O PAIN IN L WRIST. BOTH XRAY AND CT HAVE CONFIRMED NEGATIVE FX. PAIN CONTROLLED WITH TYLENOL. WILL REPORT TO NOC RN
[2024-10-11 03:45] VITALS: BP 124/65
--- NOTE | 2024-10-11 04:19 | NUR ---
SHIFT SUMMARY NO ACUTE EVENTS DURING THIS SHIFT. PT IS A/O X4, PLEASANT AND COOPERATIVE WITH CARE. LEFT WRIST ELEVATED WITH PILLOWS, BRACE IN PLACE. LEFT EYE PAD PLACED @HS AFTER THE SCHEDULED EYE DROPS WERE ADMINISTERED. TELE:SR @67, PT DENIES PAIN/PRESSURE/SOB. PLAN IS TO D/C TO SNF TODAY. BED AT THE LOWEST POSITION, CALL LIGHT W/I REACH. PT IS ABLE TO MAKE HER NEEDS KNOWN.
[2024-10-11 04:48] LABS: BASOPHILS ABSOLUTE AUTO 0.06 K/mm3 (0.00-0.23); BASOPHILS PERCENT AUTO 1 % (0-2); EOSINOPHILS ABSOLUTE AUTO 0.24 K/mm3 (0.00-0.68); EOSINOPHILS PERCENT AUTO 3 % (0-6); Hematocrit 33.5 % (33.0-51.0); Hemoglobin 11.3 g/dL (11.5-16.0); IMMATURE GRAN ABSOLUTE AUTO 0.02 K/mm3 (0.00-0.10); IMMATURE GRAN PERCENT AUTO 0 % (0-1); LYMPHOCYTES ABSOLUTE AUTO 1.89 K/mm3 (0.84-5.20); LYMPHOCYTES PERCENT AUTO 25 % (21-46); MONOCYTES ABSOLUTE AUTO 0.86 K/mm3 (0.16-1.47); MONOCYTES PERCENT AUTO 11 % (4-13); Mean Corpuscular HGB 34.1 pg (26.0-34.0); Mean Corpuscular HGB Conc 33.7 g/dL (31.5-36.5); Mean Corpuscular Volume 101 fL (80-100); NEUTROPHILS ABSOLUTE AUTO 4.62 K/mm3 (1.96-9.15); NEUTROPHILS PERCENT AUTO 60 % (41-73); Platelet Count 193 K/mm3 (150-400); RDW Coefficient Variation 17.2 % (11.7-14.2); RDW Standard Deviation 63.7 fL (35.1-46.3); Red Blood Cell Count 3.31 M/mm3 (3.80-5.20); White Blood Cell Count 7.69 K/mm3 (4.00-11.30)
[2024-10-11 05:01] LABS: International Normalized Ratio 1.17; Prothrombin Time Results 12.4 Sec (9.7-11.5)
[2024-10-11 05:03] LABS: Bun/Creatinine Ratio 12.1 (12.0-20.0); Calcium, Blood 8.3 mg/dL (8.5-10.1); Creatinine, Blood 1.4 mg/dL (0.40-1.00); Potassium, Blood 3.5 mmol/L (3.5-5.5)
[2024-10-11 08:02] VITALS: BP 116/59
[2024-10-11] MEDS ORDERED: Docusate Sodium/Senna 1 Tab PO SCH (16:55)
[2024-10-11] MEDS ORDERED: Bisacodyl 5 MG TabEC PO PRN (17:00)
[2024-10-11] MEDS ORDERED: Warfarin Sodium 5 MG Tab PO SCH (18:00)
[2024-10-11 19:52] VITALS: BP 123/55
--- NOTE | 2024-10-11 20:08 | NUR ---
summary- PT A/O X4, INDEPENDANT IN ROOM. ORTHOSTATICS HAVE BEEN POSITIVE FOR THE PAST 3 DAYS. PT HAS NOT COMPLAINED OF ANY DIZZINESS THIS SHIFT. USING A SPLINT FOR L WRIST DISCOMFORT. R ORBITAL HEMATOMA, INCREASED IN SIZE AND SWELLING HAS GONE OVER TO THE L SIDE- PT CONCERNED BEING S/P CATARACT EYE SURGERY. MENTIONED THIS TO DR GUTIERREZ WHO RECOMMENDED PT CONTACT [facility] HERSELF IN AM TO SEE IF THEY WANTED TO COME EVAL THE EYE. PT ALSO COMPLAINED OF YELLOW SPUTUM. AWAITING SPECIMIN TO SENT TO LAB. PT TOLERATING FOOD AND FLUID. STARTED SENNAKOT TODAY TO STIM A BM, HAS BEEN A NO OF DAYS. TELE SR 60'S. VSS. REPORTED TO MARY SANABRIA RN
[2024-10-12] VITALS (8 sets, daily range): BP systolic 114–164; BP diastolic 55–80
--- NOTE | 2024-10-12 03:30 | NUR ---
SHIFT SUMMARY NO ACUTE DISTRESS/EVENTS DURING THIS SHIFT. PRN PO TYLENOL ADMINISTERED @HS PER PT REQUEST. PT C/O 11/28 LEFT WRIST PAIN. WRIST SPLINT/BRACE IN PLACE, ELEVATED WITH PILLOW. NO COUGH NOTED, AWAITING FOR PT TO PRODUCE A SPUTUM SAMPLE. LUNG SOUNDS DIMINISHED @BASES. BED AT THE LOWEST POSITION, CALL LIGHT W/I REACH. SCHEDULED EYE DROPS ADMINISTERED AT HS, EYE PAD IN PLACE T/O THE NIGHT. PT IS ABLE TO MAKE HER NEEDS KNOWN AND IS COOPERATIVE WITH CARE.TELE: SR @84 WITH BBB. PT DENIES CHEST PAIN/PRESSURE AND SOB.
[2024-10-12 06:06] LABS: International Normalized Ratio 1.45; Prothrombin Time Results 15.1 Sec (9.7-11.5)
[2024-10-12] MEDS ORDERED: Cephalexin Monohydrate 500 MG Cap PO SCH (14:00)
--- NOTE | 2024-10-12 15:23 | NUR ---
1410- RN NOTIFIED MD MATT OF POSSIBLE INFECTED IV SITE. MD GAVE ORDER TO HAVE NO IV ORDER. RN TO PLACE.
[2024-10-12] MEDS ORDERED: Warfarin Sodium 5 MG Tab PO SCH (18:00)
--- NOTE | 2024-10-12 18:40 | NUR ---
SUMMARY- AAOX4. SBA WITH WALKER TO BATHROOM. MINOR COMPLAINTS OF EYE PAIN; RELEIVED WITH TYLENOL. NO ACUTE EVENTS THIS SHIFT NOTED. PT ON RA.
[2024-10-12] MEDS ORDERED: Lactobacil 2-S.Thermo-Bifido 1 1 Cap PO SCH (21:00)
[2024-10-13] VITALS (9 sets, daily range): BP systolic 106–174; BP diastolic 48–89
--- NOTE | 2024-10-13 04:27 | NUR ---
SHIFT SUMMARY 78 YR F ADMITTED ON 10/09/24. FULL CODE. NO ACUTE CHANGES THIS SHIFT. PT HAD NO C/O PAIN OR DISCOMFORT THIS SHIFT. CALLS APPROPRIATELY FOR ASSISTANCE TO BATHROOM. PT APPEARS TO HAVE RESTED COMFORTABLY FOR MOST OF THIS SHIFT. BED IN LOW POSITION AND CALL LIGHT IN REACH.
[2024-10-13 06:33] LABS: International Normalized Ratio 2.01; Prothrombin Time Results 20.4 Sec (9.7-11.5)
--- NOTE | 2024-10-13 07:42 | NUR ---
8531- THIS RN CALLED MD GUTIERREZ AND NOTIFIED HER PT FELL IN BATHROOM AND HIT HER HEAD. PT'S LEFT ARM AND LEG IS PAINFUL WELL, BUT HAS EQUAL STRENGTH AND NO CHANGES FROM YESTERDAY'S STRENGTH. PT IS ORIENTED. VITALS STABLE-WNL. ORDERED STAT CT HEAD W/O CONTRAST, NEUROS Q4, AND ORTHOSTATIC VITALS THIS AM.
--- NOTE | 2024-10-13 07:53 | NUR ---
0730- PT FELL IN BATHROOM. GRANTS AND CONTRACTS ASSISTANT IN ROOM W/PT. BATHROOM DOOR CLOSED. PT STATED SHE HIT HER HEAD ON GARBAGE CAN AND THEN THE DOOR. LEFT LEG/ARM PAINFUL. EQUAL STRENGTH. VITALS WNL/STABLE. PT HAS X3 MINOR SKIN TEARS ON RIGHT HAND. CLEANSED AND BANDAIDE APPLIED. NO MAYA ON LEFT LEG/HIP. PT HAS A SMALL ABRASION ON UPPER LIP. BRUISING IN PRESENT ON LEFT UPPER FOREHEAD INTO TOP OF HEAD/HAIRLINE. PT IS ORIENTED. MATT INFORMED. ORDERD RECEIVED.
--- NOTE | 2024-10-13 15:06 | NUR ---
AT 0730 I WAS CHECKING THE PATIENTS VITALS AND SHE NEED TO GO TO THE BATHROOM. I GOT THE WALKER AND HELPED THE PATIENT TO THE TOILET. THE PATIENT SAT DOWN AND I ASKED HER TO PULL THE CORD WHEN SHE WAS DONE THEN I SHUT THE DOOR. I WAS STRAIGHTENING THE BED UP WHEN I HEARD WHAT SOUNDED LIKE THE GARBAGE CAN IN THE BATHROOM MOVE. I RAN AND OPENED THE DOOR AND THE PATIENT WAS STANDING WITH HER HEAD DOWN AND SHE FELL ONTO HER FOREHEAD. THE NURSE CAME RIGHT IN AND AFTER SHE LOOKED HER OVER WE WERE ABLE TO SIT HER ON HER BOTTOM. I THEN TOOK THE PATIENTS VITALS. WE PUT THE GAIT BELT ON AND WERE ABLE TO HELP HER STAND UP AND WITH USING THE WALKER WERE ABLT TO GET HER BACK TO BED. LAY DOWN
--- NOTE | 2024-10-13 15:50 | NUR ---
SUMMARY- AAOX4. X1 ASSIST WITH WALKER AND GAIT BELT. PT ON RA. NO CHANGES IN NEUROS SINCE FALL THIS MORNING. SMALL COMPLAINTS OF HEAD PAIN POST FALL-RELEIVED WITH TYLENOL. NO OTHER ACUTE EVENTS THIS SHIFT.
[2024-10-14 00:31] VITALS: BP 108/49
--- NOTE | 2024-10-14 03:34 | NUR ---
SHIFT SUMMARY NO ACUTE EVENTS DURING THIS SHIFT. NEURO CHECK WNL. TELE: SR @75 WITH BBB. @HS PT C/O H/A, MEDICATED PER EMAR. PT IS SBA TO THE RESTROOM, AND CALLS APPROPRIATELY. PT IS ON RA, CONTINUOUS PULSE OXIMETER SAT'S> 96%, PT DENIES SOB. BED AT THE LOWEST POSITION, CALL LIGHT W/I REACH. PT IS A/O X4, PLEASANT AND COOPERATIVE WITH CARE.
[2024-10-14 04:22] VITALS: BP 129/62
[2024-10-14 07:30] VITALS: BP 145/69
[2024-10-14 11:51] VITALS: BP 133/85
--- NOTE | 2024-10-14 13:30 | NUR ---
DC-1310 PT DC IN STABLE CONDITION. PICKED UP BY [facility]. PT LEFT WITH ALL BELONGINGS. REPORT CALLED TO [facility] TO NURSE BENNY. ALL QUESTIONS ANSWERED.
[2024-10-14] MEDS ORDERED: CEPH500 PO (14:54)
[2024-10-14] MEDS ORDERED: ASPI81CH PO (14:55)
[2024-10-14] MEDS ORDERED: VISBIOME 112.51 EACH PO (14:55)
== END 2024-10-14 13:08 | DRG 312 ==
LOC: ER 00:47 → MEDS 05:26 → ENPENDDIS 10-14 12:58 → MEDS 10-14 13:08
PROVIDERS: Emergency Medicine; Internal Medicine; Student in an Organized Health Care Education/Training Program; ADMIT Internal Medicine
DX: I95.1 Orthostatic hypotension (principal); I13.0 Hypertensive heart and chronic kidney disease with heart failure and stage 1 through stage 4 chronic kidney disease, or unspecified chronic kidney disease; I50.32 Chronic diastolic (congestive) heart failure; N18.5 Chronic kidney disease, stage 5; N39.0 Urinary tract infection, site not specified; G47.33 Obstructive sleep apnea (adult) (pediatric); J44.89 Other specified chronic obstructive pulmonary disease; D63.1 Anemia in chronic kidney disease; K21.9 Gastro-esophageal reflux disease without esophagitis; E78.5 Hyperlipidemia, unspecified; Z96.653 Presence of artificial knee joint, bilateral; E88.09 Other disorders of plasma-protein metabolism, not elsewhere classified; F41.9 Anxiety disorder, unspecified; G47.00 Insomnia, unspecified; I65.29 Occlusion and stenosis of unspecified carotid artery; I25.10 Atherosclerotic heart disease of native coronary artery without angina pectoris; G62.9 Polyneuropathy, unspecified; I48.0 Paroxysmal atrial fibrillation; M32.9 Systemic lupus erythematosus, unspecified; H40.89 Other specified glaucoma; I70.208 Unspecified atherosclerosis of native arteries of extremities, other extremity; R13.10 Dysphagia, unspecified; I48.91 Unspecified atrial fibrillation; R29.6 Repeated falls; M54.2 Cervicalgia; S00.83XA Contusion of other part of head, initial encounter; R63.4 Abnormal weight loss; Z88.2 Allergy status to sulfonamides; Z88.5 Allergy status to narcotic agent; Z88.1 Allergy status to other antibiotic agents; Z79.899 Other long term (current) drug therapy; Z79.52 Long term (current) use of systemic steroids; Z79.51 Long term (current) use of inhaled steroids; Z79.01 Long term (current) use of anticoagulants; Z87.19 Personal history of other diseases of the digestive system; Z90.49 Acquired absence of other specified parts of digestive tract; Z90.710 Acquired absence of both cervix and uterus; Z90.89 Acquired absence of other organs; Z98.42 Cataract extraction status, left eye; Z68.31 Body mass index [BMI] 31.0-31.9, adult; Z98.890 Other specified postprocedural states; Z28.21 Immunization not carried out because of patient refusal; Z98.41 Cataract extraction status, right eye; W01.198A Fall on same level from slipping, tripping and stumbling with subsequent striking against other object, initial encounter; Y92.009 Unspecified place in unspecified non-institutional (private) residence as the place of occurrence of the external cause
CPT/HCPCS: 36415; 70450; 70551; 71045; 71260; 72125; 73100; 73200; 73502; 73600; 74177; 80048; 80053; 81001; 82565; 84439; 84443; 85025; 85610; 86140; 87077; 87086; 87186; 87493; 90471; 90715; 93005; 93010; 94640; 94664; 94760; 94762; 96374; 97110; 97110-CQ; 97116; 97116-CQ; 97161; 97165; 97530; 97535; 99285-25; A9270; J2470; J3010; J7030; L0160; L3917; Q9967

== ENCOUNTER 2025-02-18 11:37 | Emergency (ER) | payer OTHER ==
[~2025-02-18] VITALS: Ht 167.6 cm; Wt 85.3 kg
[~2025-02-18 11:37] MED LIST changes: +ASPI81CH PO; +CEPH500 PO; +Ciprofloxacin2.5 ML LEFTEYE; +DORZOLAMIDE-TIM10 ML; +ENOX30I SC; +PRED FORTE5 M1; +PREDNISOLONE ACE5 ML LEFTEYE; +VALA500 PO; +VISBIOME 112.51 EACH PO
[2025-02-18 11:57] LABS: BASOPHILS ABSOLUTE AUTO 0.05 K/mm3 (0.00-0.23); BASOPHILS PERCENT AUTO 1 % (0-2); EOSINOPHILS ABSOLUTE AUTO 0.08 K/mm3 (0.00-0.68); EOSINOPHILS PERCENT AUTO 1 % (0-6); Hematocrit 41.1 % (33.0-51.0); Hemoglobin 13.9 g/dL (11.5-16.0); IMMATURE GRAN ABSOLUTE AUTO 0.03 K/mm3 (0.00-0.10); IMMATURE GRAN PERCENT AUTO 0 % (0-1); LYMPHOCYTES ABSOLUTE AUTO 2.21 K/mm3 (0.84-5.20); LYMPHOCYTES PERCENT AUTO 22 % (21-46); MONOCYTES ABSOLUTE AUTO 0.76 K/mm3 (0.16-1.47); MONOCYTES PERCENT AUTO 8 % (4-13); Mean Corpuscular HGB Conc 33.8 g/dL (31.5-36.5); Mean Corpuscular Volume 108 fL (80-100); NEUTROPHILS ABSOLUTE AUTO 6.94 K/mm3 (1.96-9.15); NEUTROPHILS PERCENT AUTO 69 % (41-73); NRBC ABSOLUTE 0.00 K/mm3 (0.00-0.02); NRBC Auto 0.0 /100 WBC (0.0-0.2); Platelet Count 241 K/mm3 (150-400); RDW Coefficient Variation 12.7 % (11.7-14.2); RDW Standard Deviation 50.4 fL (35.1-46.3)
[2025-02-18 12:18] LABS: Alanine Aminotransfer (ALT/SGP 18.0 U/L (12-78); Albumin, Blood 2.9 g/dL (3.4-5.0); Albumin/Globulin Ratio 0.6 (0.8-1.8); Anion Gap 9.0 mmol/L (3-11); Aspartate Aminotrans (AST/SGOT 24.0 U/L (12-37); Bilirubin, Total 0.9 mg/dL (0.1-1.0); Blood Urea Nitrogen 24.0 mg/dL (8-24); CO2, Blood 22.0 mmol/L (21-32); Calcium, Blood 9.2 mg/dL (8.5-10.1); Chloride, Blood 111.0 mmol/L (98-108); Creatinine, Blood 1.36 mg/dL (0.40-1.00); Globulin, Blood 4.8 g/dL (2.2-4.0); Glucose, Blood 85.0 mg/dL (70-99); Potassium, Blood 4.5 mmol/L (3.5-5.5); Sodium, Blood 137.0 mmol/L (136-145); Total Protein, Blood 7.7 g/dL (6.4-8.2)
[2025-02-18 13:39] LABS: Prothrombin Time Results 21.4 Sec (9.7-11.5)
[2025-02-18] MEDS ORDERED: NS 1,000 ML IV ONE (19:09)
[2025-02-18] MEDS ORDERED: Propofol 10mg/ml 20 ml Vial (Procedural) IV ONE (19:10)
[2025-02-18 20:00] VITALS: BP 152/77
== END 2025-02-18 20:25 | disposition home or self-care (01) ==
LOC: ER 11:37
PROVIDERS: Student in an Organized Health Care Education/Training Program
DX: I48.91 Unspecified atrial fibrillation (principal); R55 Syncope and collapse; J45.909 Unspecified asthma, uncomplicated; G47.33 Obstructive sleep apnea (adult) (pediatric); I12.9 Hypertensive chronic kidney disease with stage 1 through stage 4 chronic kidney disease, or unspecified chronic kidney disease; K21.9 Gastro-esophageal reflux disease without esophagitis; E78.5 Hyperlipidemia, unspecified; J44.9 Chronic obstructive pulmonary disease, unspecified; Z90.710 Acquired absence of both cervix and uterus; Z90.49 Acquired absence of other specified parts of digestive tract; Z79.01 Long term (current) use of anticoagulants
CPT/HCPCS: 71046; 80053; 83735; 84484; 85025; 85610; 93005; 93010; A9270; J2704; J7030